=== PATIENT | female | born 1960 | race Caucasian/White ===

== ENCOUNTER 2023-12-12 10:24 | Emergency (ER) | payer BC ==
[~2023-12-12] VITALS: Ht 170.2 cm; Wt 70.5 kg
[2023-12-12] MEDS ORDERED: SODIUM CHLORIDE 0.9% 1,000 ML IV ONE (10:30)
[2023-12-12 10:31] VITALS: BP 136/85
[2023-12-12 10:45] VITALS: BP 138/81
[2023-12-12 11:00] VITALS: BP 133/81
[2023-12-12] MEDS ORDERED: ONDANSETRON HCl 4 MG/2 ML SDV IV ONE (11:00)
[2023-12-12 11:04] LABS: BASO% 0.7 % (0-3); EOS% 1.5 % (0-8); HEMATOCRIT 46.8 % (37.0-47.0); HEMOGLOBIN 15.4 g/dl (12.0-16.0); IMMATURE GRANULOCYTES 1.5 % (0.0-5.0); LYMPH% 33.6 % (15-41); MEAN CORPUSCULAR HGB 30.9 pG CALC (26.0-32.0); MEAN CORPUSCULAR HGB CONC 32.9 g/dL CAL (32.0-36.0); MONO% 5.6 % (2-13); NEUT# 2.35 thou/uL (2.00-7.15); NEUT% 57.1 % (42-76); RED BLOOD COUNT 4.98 mill/uL (4.20-5.60); RED CELL DISTRI WIDTH 12.5 % (11.5-15.5)
[2023-12-12 11:15] VITALS: BP 143/80
[2023-12-12 11:26] LABS: ALBUMIN 4.6 g/dL (3.2-5.0); BILIRUBIN, TOTAL 0.6 mg/dL (0.02-1.3); CREATININE 0.7 mg/dL (0.5-1.0); POTASSIUM 3.7 mmol/l (3.5-5.1); TOTAL PROTEIN 7.8 g/dL (6.3-8.2)
[2023-12-12] MEDS ORDERED: LORazepam 2 MG/ML IV ONE (12:25)
[2023-12-12 14:05] VITALS: BP 143/80
== END 2023-12-12 14:06 | disposition home or self-care (01) | DRG 101 ==
LOC: ED 10:24
PROVIDERS: Family Medicine
DX: G40.409 Other generalized epilepsy and epileptic syndromes, not intractable, without status epilepticus (principal)
CPT/HCPCS: J2060